=== PATIENT | male | born 1995 | race Caucasian/White ===

== ENCOUNTER 2024-02-03 13:55 | Outpatient (CLI) | payer MEDICAID ==
[2024-02-03] MEDS ORDERED: GADOTERATE MEGLUMINE 7.5 MMOL/15 ML VIAL IV ONE (19:38)
== END 2024-02-03 23:59 | disposition home or self-care (01) ==
LOC: MRI 13:55
PROVIDERS: ATTEND Podiatrist Foot & Ankle Surgery
DX: M79.671 Pain in right foot (principal); M86.9 Osteomyelitis, unspecified
CPT/HCPCS: 73720; A9575